=== PATIENT | male | born 1995 | race Caucasian/White ===

== ENCOUNTER 2018-06-11 06:16 | Day surgery (SDC) | payer BC ==
[2018-06-11] MEDS ORDERED: PROPOFOL 200 MG INJ (07:00)
[2018-06-11 07:33] LABS: ADD MAN DIFF? NO
[2018-06-11 07:37] LABS: WHITE BLOOD COUNT 5.1 10^3/ul (4.8-10.8)
[2018-06-11 07:37] LABS: BASOPHILS % 0.4 % (0.0-2.0); EOSINOPHILS # 0.1 10^3/ul (0.0-0.5); EOSINOPHILS % 2.8 % (0.0-7.0); HEMATOCRIT 46.4 % (42.0-52.0); HEMOGLOBIN 15.3 g/dl (14.0-18.0); LYMPHOCYTES # 1.8 10^3/ul (0.8-2.9); LYMPHOCYTES % 34.4 % (15.0-51.0); MEAN CORPUSCULAR HEMOGLOBIN 28.9 pg (29.0-33.0); MEAN CORPUSCULAR VOLUME 87.5 fl (82.0-101.0); MEAN PLATELET VOLUME 11.9 fl (7.4-10.4); MONOCYTE # 0.5 10^3/ul (0.3-0.9); MONOCYTES % 9.8 % (0.0-11.0); NEUTROPHIL # 2.7 10^3/ul (1.6-7.5); NEUTROPHILS % 52.4 % (39.0-77.0); PLATELET COUNT 178 10^3/UL (140-415); RED CELL DISTRIBUTION WIDTH 13.2 % (11.5-14.5)
[2018-06-11 07:55] LABS: ANION GAP 11 (8-16); BLOOD UREA NITROGEN 16 mg/dl (7-20); CALCIUM 9.3 mg/dl (8.4-10.2); CARBON DIOXIDE 26 mmol/L (21-31); CHLORIDE 103 mmol/L (97-110); CREATININE 0.84 mg/dl (0.61-1.24); GLUCOSE 94 mg/dl (70-220); POTASSIUM 4.2 mmol/L (3.5-5.1); SODIUM 136 mmol/L (135-144)
[2018-06-11 07:56] LABS: INR 0.91; PROTIME 12.3 Sec (11.9-14.9)
[2018-06-11 07:57] LABS: PARTIAL THROMBOPLASTIN TIME 26.9 Sec (25.0-35.0)
[2018-06-11] MEDS ORDERED: MIDAZOLAM 1 MG/ML 2 ML INJ (08:55)
[2018-06-11] MEDS ORDERED: FENTAnyl 50 MCG/ML VIAL ×3 (08:55→10:15)
[2018-06-11] MEDS ORDERED: LIDOCAINE 2% (SDV) 5 ML INJ (08:55)
[2018-06-11] MEDS ORDERED: PROPOFOL 20 ML (08:55)
[2018-06-11] MEDS ORDERED: ROCURONIUM 50 MG INJ (08:55)
[2018-06-11] MEDS ORDERED: SUCCINYLCHOLINE CHLORIDE 100 MG/5 ML SYG IV ×2 (08:55→09:51)
[2018-06-11] MEDS ORDERED: ONDANSETRON 4 MG INJ (08:56)
[2018-06-11] MEDS ORDERED: DEXAMETHASONE 4 MG/ML 1 ML INJ (08:56)
[2018-06-11] MEDS ORDERED: CEFAZOLIN 1 GM INJ (09:10)
[2018-06-11] MEDS ORDERED: FAMOTIDINE 20 MG INJ (09:15)
[2018-06-11] MEDS ORDERED: ACETAMINOPHEN 1000MG/100ML IV 100 ML (09:16)
[2018-06-11] MEDS: LIDOCAINE 1%/EPI 30 ML INJ (09:18)
[2018-06-11] MEDS: POLYMYXIN/BACITRACIN 1L IRRIG (09:30)
[2018-06-11] MEDS ORDERED: SUGAMMADEX SODIUM 200 MG/2 ML VIAL IV (09:57)
[2018-06-11] MEDS ORDERED: DIPHENHYDRAMINE 50 MG INJ IV (10:00)
[2018-06-11] MEDS ORDERED: HYDROmorphONE 1 MG/5 ML IV SYRINGE IV (10:00)
[2018-06-11] MEDS ORDERED: MEPERIDINE 25 MG INJ IV (10:00)
[2018-06-11] MEDS ORDERED: FENTAnyl 50 MCG/ML VIAL IV (10:00)
[2018-06-11] MEDS: HYDROmorphONE 1 MG/5 ML IV SYRINGE IV ×3 (11:08→12:48)
[2018-06-11] MEDS: ONDANSETRON 4 MG INJ IV (11:14)
[2018-06-11] MEDS: FENTAnyl 50 MCG/ML VIAL IV ×2 (11:24→11:33)
[2018-06-11] MEDS ORDERED: morphine 2 MG INJ IV (11:30)
[2018-06-11] MEDS ORDERED: HYDROCODONE/APAP (5/325) TAB PO (11:30)
[2018-06-11] MEDS ORDERED: ONDANSETRON 4 MG INJ IV (11:30)
[2018-06-11] MEDS ORDERED: ACETAMINOPHEN 325 MG TAB PO (11:30)
== END 2018-06-11 13:20 | disposition home or self-care (01) ==
LOC: SDS 06:16
DX: T87.89 Other complications of amputation stump (principal); Y83.8 Other surgical procedures as the cause of abnormal reaction of the patient, or of later complication, without mention of misadventure at the time of the procedure; M86.661 Other chronic osteomyelitis, right tibia and fibula; E66.9 Obesity, unspecified; Z68.35 Body mass index [BMI] 35.0-35.9, adult; Z87.891 Personal history of nicotine dependence
CPT/HCPCS: 27884; 80048; 85025; 85610; 85730; 87070; 87075; 88304; 88305; 88311